=== PATIENT | male | born 1995 | race Caucasian/White ===

== ENCOUNTER 2018-11-19 20:48 | Emergency (ER) | payer SELFPAY ==
[~2018-11-19] VITALS: Ht 175.3 cm; Wt 63.5 kg
[2018-11-19] MEDS ORDERED: Adderall 20 MG20 MG PO (21:19)
[2018-11-19] MEDS ORDERED: DIVA125EC PO (21:19)
== END 2018-11-19 22:08 | disposition home or self-care (01) ==
LOC: ER 20:48
DX: M70.12 Bursitis, left hand (principal); Z88.0 Allergy status to penicillin; Z79.899 Other long term (current) drug therapy
CPT/HCPCS: 73110; 99283-25